=== PATIENT | male | born 1965 | race Caucasian/White ===

== ENCOUNTER 2019-01-10 17:28 | Emergency (ER) | payer OTHER ==
[~2019-01-10] VITALS: Ht 170.2 cm; Wt 89.5 kg
[2019-01-10 17:38] VITALS: BP 134/92
--- NOTE | 2019-01-10 17:38 | NUR ---
PATIENT TRIAGED. VSS AT THIS TIME. PT SENT TO ER LOBBY.
--- NOTE | 2019-01-10 17:50 | NUR ---
C/O BILAT LOWER ABD PAIN X3 DAYS, 8/10 & CRAMPING. PT ALSO REPORT CHILLS, N/V/CONSTIPATION. DENIES FEVER. LBM 01/09/19, VERY LITTLE AND HARD PER PT. ABDOMEN SOFT, FLAT & PT GUARDING WHEN I ATTEMPTED TO PALPATE FOR TENDERNESS. ABD SOUNDS PRESENT X4. LAST VOMITING EPISODE EARLIER TODAY. PT STATES HE IS UNABLE TO KEEP FOOD/WATER DOWN. BED IN LOW POSITION, SIDE RAIL UP X1.
--- NOTE | 2019-01-10 18:05 | NUR ---
PT AMBULATED TO ER BED 03
--- NOTE | 2019-01-10 19:00 | NUR ---
PT ACTING APPROPRIATLY, COMFORT MEASURES PROVIDED. BREATHING EQUAL AND UNLABORED, NO SIGNS OF DISTRESS AT THIS TIME.
[2019-01-10] MEDS ORDERED: NACL 0.9% 1,000 ML IV SCH (19:41)
[2019-01-10] MEDS ORDERED: ALUMINUM HYD/MAG/SIMETHICONE 30 ML, DICYCLOMINE HCL LIQUID 20 MG, LIDOCAINE VISCOUS 2% ... PO ONE ×3 (19:45)
[2019-01-10 19:56] LABS: APPEARANCE,URINE CLEAR (CLEAR); BILIRUBIN,URINE NEGATIVE (NEGATIVE); BLOOD, URINE 2+ (NEGATIVE); COLOR,URINE YELLOW (YELLOW); LEUKOCYTE ESTERASE ,URINE 2+ (NEGATIVE); NITRITE, URINE NEGATIVE (NEGATIVE); UGLUCOSE NEGATIVE (NEGATIVE)
[2019-01-10 20:22] LABS: WBC,URINE TOO MANY TO COUNT /HPF (0-5)
[2019-01-10 20:42] LABS: BASOPHILS % (AUTO) 0.3 % (0.0-2.0); EOSINOPHILS % (AUTO) 0.1 % (0.0-4.0); HEMOGLOBIN 13.2 g/dL (12.0-18.0); LYMPHOCYTES # (AUTO) 1.2 K/uL (2.0-11.5); LYMPHOCYTES % (AUTO) 10.3 % (20.5-51.1); MEAN CORPUSCULAR HEMOGLOBIN 29 pg (27-31); MEAN CORPUSCULAR HGB CONC 33 g/dL (33-37); MEAN CORPUSCULAR VOLUME 87.8 fL (80-94); MONOCYTES % (AUTO) 8.3 % (1.7-9.3); NEUTROPHILS # (AUTO) 9.6 K/uL (1.8-7.7); PLATELET COUNT (AUTO) 387 K/uL (140-450); RED BLOOD CELL COUNT(AUTO) 4.55 MIL/uL (4.20-6.10); WHITE BLOOD COUNT (AUTO) 11.9 K/uL (4.8-10.8)
[2019-01-10] MEDS ORDERED: KETOROLAC 15 MG/ML VIAL IVP ONE (20:55)
--- NOTE | 2019-01-10 21:00 | NUR ---
PT ACTING APPROPRIATLY, COMFORT MEASURES PROVIDED. SPEAKING IN CLEAR AND COMPLETE SENTENCES. BREATHING EQUAL AND UNLABORED, NO SIGNS OF DISTRESS AT THIS TIME.
[2019-01-10 21:01] LABS: ANION GAP 15.6 (8-16); CARBON DIOXIDE 25.8 mmol/L (21-32); CREATININE 1.2 mg/dL (0.7-1.3); POTASSIUM 4.4 mmol/L (3.5-5.1)
[2019-01-10 21:06] LABS: ALBUMIN 2.8 g/dL (3.4-5.0); TOTAL BILIRUBIN 0.3 mg/dL (0.0-1.0)
[2019-01-10] MEDS ORDERED: cefTRIAXone 1,000 MG VIAL ONE (21:17)
[2019-01-10] MEDS ORDERED: KETOROLAC 30 MG/ML VIAL ONE (21:18)
[2019-01-10] MEDS ORDERED: NACL 0.9% 1,000 ML IV ONE (21:20)
[2019-01-10 22:05] VITALS: BP 137/85
--- NOTE | 2019-01-10 22:05 | NUR ---
Patient discharged with v/s stable. Written and verbal after care instructions given and explained. Patient alert, oriented and verbalized understanding of instructions. Ambulatory with steady gait. All questions addressed prior to discharge. ID band removed. Patient advised to follow up with PMD. Rx of BACTRIM 800MG, [id number] AND MINERAL OIL LUBRICANT given. Patient educated on indication of medication including possible reaction and side effects. Opportunity to ask questions provided and answered.
== END 2019-01-10 22:05 | disposition home or self-care (01) ==
LOC: MED 17:28
DX: N39.0 Urinary tract infection, site not specified (principal); K59.00 Constipation, unspecified
CPT/HCPCS: 36415; 74022; 80053; 81001; 82150; 83690; 85025; 87086; 96361; 96365; 96375; 99284; J0696; J1885; J7030; J7060; 87186

== ENCOUNTER 2020-07-21 04:04 | Emergency (ER) | payer OTHER ==
[~2020-07-21] VITALS: Ht 170.2 cm; Wt 97.5 kg
[2020-07-21 04:07] VITALS: BP 162/101
--- NOTE | 2020-07-21 04:13 | NUR ---
Patient seen by LORETTA
--- NOTE | 2020-07-21 04:20 | NUR ---
See complete assessment
--- NOTE | 2020-07-21 04:31 | NUR ---
Patient discharged with v/s stable. Written and verbal after care instructions given and explained. Patient alert, oriented and verbalized understanding of instructions. Ambulatory with steady gait. All questions addressed prior to discharge. ID band removed. Patient advised to follow up with PMD. Rx of cipro; ciprodex; tylenol with codeine given. Patient educated on indication of medication including possible reaction and side effects. Opportunity to ask questions provided and answered.
[2020-07-21 04:32] VITALS: BP 158/98
== END 2020-07-21 04:31 | disposition home or self-care (01) ==
LOC: MED 04:04
DX: H60.92 Unspecified otitis externa, left ear (principal); R51.9 Headache, unspecified
CPT/HCPCS: 99283

== ENCOUNTER 2022-06-22 10:55 | Emergency (ER) | payer OTHER ==
[~2022-06-22] VITALS: Ht 177.8 cm; Wt 103.9 kg
[2022-06-22 11:21] VITALS: BP 179/107
--- NOTE | 2022-06-22 11:28 | NUR ---
PT AMB TO BED 2.
--- NOTE | 2022-06-22 11:28 | NUR ---
PATIENT IS ALERT AND ORIENTED X 4, NO S/S OF ACUTE DISTRESS. LACERATION ON RIGHT PALM. BLEEDING IS CONTROLLED
[2022-06-22] MEDS ORDERED: LIDOCAINE 1% 500 MG/ 50 ML VIAL INJ ONE (11:40)
[2022-06-22] MEDS ORDERED: BACITRACIN OINT 500 UNITS/GM PKT TP ONE (11:40)
[2022-06-22] MEDS ORDERED: LIDOCAINE 2% 1000 MG/50 ML VIAL INJ ONE (11:45)
--- NOTE | 2022-06-22 11:46 | NUR ---
PATIENT PRESENTS TO ED WITH LACERATION TO RIGHT HAND . 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 [facility]'S INTACT. DENIES N/V/D; SKIN IS PINK/WARM/DRY; AAOX4 WITH EVEN AND STEADY GAIT; LUNGS CLEAR BL; HR EVEN AND REGULAR; PT DENIES ANY FEVER, CP, SOB, OR COUGH AT THIS TIME; PATIENT STATES PAIN OF 0/10 AT THIS TIME; VSS; PATIENT POSITIONED FOR COMFORT; HOB ELEVATED; BEDRAILS UP X2; BED DOWN. ER MD MADE AWARE OF PT STATUS.
[2022-06-22] MEDS ORDERED: BACI1PAC6 TP (12:38)
[2022-06-22] MEDS ORDERED: CEPH500C16 PO (12:38)
[2022-06-22] MEDS ORDERED: IBUP-2213 PO (12:38)
--- NOTE | 2022-06-22 12:58 | NUR ---
DEYSI Naqvi applied sutures using sterile technique. Edges well approximated. Site cleansed with betadine. No bleeding noted. Pt tolerated well.
--- NOTE | 2022-06-22 13:07 | NUR ---
NON ADHERENT X 2 APPLIED TO R PALM. VELCRO VOLAR SPLINT APPLIED. + CMS
[2022-06-22 14:00] VITALS: BP 168/95
== END 2022-06-22 14:00 | disposition home or self-care (01) ==
LOC: MED 10:55
DX: S61.411A Laceration without foreign body of right hand, initial encounter (principal); I10 Essential (primary) hypertension; W29.8XXA Contact with other powered hand tools and household machinery, initial encounter; Y93.89 Activity, other specified; Y92.89 Other specified places as the place of occurrence of the external cause; Y99.8 Other external cause status
CPT/HCPCS: 12004; 73130; 90471; 90715; 99283; J2001